=== PATIENT | male | born 1990 | race Hispanic/Latino ===

== ENCOUNTER 2022-08-17 03:42 | Inpatient (IN) | payer OTHER ==
[~2022-08-17] VITALS: Ht 167.6 cm; Wt 95.2 kg
[~2022-08-17 03:42] MED LIST: ACET-2079 PO; IBUP-2077 PO; TAMS-1 PO
[2022-08-17 04:14] LABS: BASOPHILS % (AUTO) 0.5 % (0.0-5.0); EOSINOPHILS % (AUTO) 2.2 % (0.0-8.0); HEMATOCRIT 44.2 % (42-54); LYMPHOCYTES % (AUTO) 25.9 % (21.0-51.0); MEAN CORPUSCULAR HEMOGLOBIN 29.3 pg (27.0-33.0); MEAN CORPUSCULAR HGB CONC 33.3 g/dL (32.0-36.0); MONOCYTES % (AUTO) 5.4 % (3.0-13.0); NEUTROPHILS % (AUTO) 65.6 % (40.0-77.0); PLATELET COUNT (AUTO) 251 K/uL (130-400); RED BLOOD CELL COUNT(AUTO) 5.02 MIL/uL (4.50-6.20); RED CELL DISTRIBUTION WIDTH 12.4 % (11.0-15.5); WHITE BLOOD COUNT (AUTO) 8.5 K/uL (4.8-10.8)
[2022-08-17] MEDS ORDERED: ONDANSETRON 4MG INJ ONE ×2 (04:27→05:02)
[2022-08-17 04:29] LABS: CREATININE 0.9 mg/dL (0.5-1.5); POTASSIUM 3.8 mmol/L (3.5-5.1)
[2022-08-17 04:37] LABS: ALBUMIN 4.1 g/dL (3.5-5.0); TOTAL PROTEIN, SERUM 7.6 g/dL (6.0-8.3)
[2022-08-17 04:38] LABS: APPEARANCE,URINE TURBID (CLEAR); BILIRUBIN,URINE NEGATIVE (NEGATIVE); COLOR,URINE DARK-BROWN (YELLOW); GLUCOSE, URINE (UA) NEGATIVE (NEGATIVE); KETONES,URINE NEGATIVE (NEGATIVE); LEUKOCYTE ESTERASE ,URINE 25 Leu/uL (NEGATIVE); NITRATE,URINE NEGATIVE (NEGATIVE); OCCULT BLOOD,URINE LARGE (NEGATIVE); PROTEIN,URINE 100 mg/dL (NEGATIVE); UROBILINOGEN,URINE 0.2 mg/dL (0.2-1.0)
[2022-08-17 04:42] LABS: RBC,URINE TNTC /HPF (0-1); YEAST,URINE BUDDING RARE /HPF (None Seen)
[2022-08-17] MEDS ORDERED: ONDANSETRON 4MG INJ IVP ONE (05:00)
[2022-08-17] MEDS ORDERED: MORPHINE 4 MG SYG IVP ONE (05:00)
[2022-08-17] MEDS ORDERED: KETOROLAC 30MG VIAL (30MG/ML) IVP ONE (05:00)
[2022-08-17] MEDS ORDERED: KETOROLAC 30MG VIAL (30MG/ML) ONE (05:01)
[2022-08-17] MEDS ORDERED: MORPHINE 4 MG SYG ONE (05:02)
[2022-08-17] MEDS ORDERED: 0.9%NACL 1000ML 1,000 ML IV SCH (05:30)
[2022-08-17] MEDS ORDERED: CEFTRIAXONE 1G VIAL 1 GM in 0.9%NACL 50ML 50 ML IV SCH (07:00)
[2022-08-17] MEDS ORDERED: TAMSULOSIN HCL 0.4 MG CAP.ER.24H PO ONE (07:00)
[2022-08-17] MEDS ORDERED: ONDANSETRON 4MG INJ IV PRN (07:00)
[2022-08-17] MEDS ORDERED: ACETAMINOPHEN 325 MG TAB PO PRN ×2 (07:00)
[2022-08-17] MEDS ORDERED: MORPHINE 2 MG SYG IVP PRN (08:00)
[2022-08-17] MEDS ORDERED: MORPHINE 4 MG SYG IM PRN (08:00)
[2022-08-17 08:47] LABS: HEMOGLOBIN A1C 5.4 % (4.0-6.0)
[2022-08-17] MEDS ORDERED: TAMSULOSIN HCL 0.4 MG CAP.ER.24H ONE (08:53)
[2022-08-17] MEDS ORDERED: CEFTRIAXONE 1G VIAL ONE (08:53)
[2022-08-17] MEDS: FAMOTIDINE 20MG TAB PO SCH ×2 (08:57→19:17)
[2022-08-17] MEDS: ACETAMINOPHEN WITH CODEINE 1 TAB TAB PO PRN (08:57)
[2022-08-17] MEDS: TAMSULOSIN HCL 0.4 MG CAP.ER.24H PO SCH (08:57)
[2022-08-17] MEDS: 0.9%NACL 1000ML 1,000 ML IV SCH ×3 (08:57→19:18)
[2022-08-17] MEDS: CEFTRIAXONE 1G VIAL IVPB SCH (09:05)
[2022-08-17] MEDS ORDERED: MORPHINE 4 MG SYG IV PRN (12:00)
[2022-08-17 17:20] VITALS: BP 125/81
[2022-08-17 19:54] VITALS: BP 119/83
[2022-08-17 23:51] VITALS: BP 132/90
[2022-08-18] VITALS (14 sets, daily range): BP systolic 110–132; BP diastolic 58–85
[2022-08-18 05:50] LABS: BASOPHILS % (AUTO) 0.6 % (0.0-5.0); EOSINOPHILS % (AUTO) 4.1 % (0.0-8.0); HEMATOCRIT 38.2 % (42-54); LYMPHOCYTES % (AUTO) 35.9 % (21.0-51.0); MEAN CORPUSCULAR HEMOGLOBIN 29.6 pg (27.0-33.0); MEAN CORPUSCULAR HGB CONC 33.2 g/dL (32.0-36.0); MONOCYTES % (AUTO) 6.3 % (3.0-13.0); NEUTROPHILS % (AUTO) 52.6 % (40.0-77.0); PLATELET COUNT (AUTO) 221 K/uL (130-400); RED BLOOD CELL COUNT(AUTO) 4.29 MIL/uL (4.50-6.20); RED CELL DISTRIBUTION WIDTH 12.3 % (11.0-15.5); WHITE BLOOD COUNT (AUTO) 6.7 K/uL (4.8-10.8)
[2022-08-18 06:02] LABS: INR 0.94 (0.85-1.15); PROTHROMBIN TIME 10.3 SEC (9.6-11.6)
[2022-08-18 06:04] LABS: PARTIAL THROMBOPLASTIN TIME 27.9 SEC (26.3-35.5)
[2022-08-18 06:36] LABS: ALBUMIN 3.1 g/dL (3.5-5.0); CREATININE 0.8 mg/dL (0.5-1.5); POTASSIUM 3.5 mmol/L (3.5-5.1); TOTAL PROTEIN, SERUM 6.1 g/dL (6.0-8.3)
[2022-08-18] MEDS ORDERED: POTASSIUM CHLORIDE 20MEQ/100ML 100 ML IV PRN (08:00)
[2022-08-18] MEDS ORDERED: POTASSIUM CHLORIDE 10% ELIXIR 20 MEQ/15 ML UDCUP PO PRN (08:00)
[2022-08-18] MEDS ORDERED: KCL 20 MEQ ERTAB PO ONE (08:18)
[2022-08-18] MEDS ORDERED: TAMSULOSIN HCL 0.4 MG CAP.ER.24H ONE (08:19)
[2022-08-18] MEDS: 0.9%NACL 1000ML 1,000 ML IV SCH ×2 (08:36→16:48)
[2022-08-18] MEDS: KCL 20 MEQ ERTAB PO PRN ×2 (08:37→12:22)
[2022-08-18] MEDS: TAMSULOSIN HCL 0.4 MG CAP.ER.24H PO SCH (08:38)
[2022-08-18] MEDS: FAMOTIDINE 20MG TAB PO SCH ×2 (08:38→20:41)
[2022-08-18] MEDS: CEFTRIAXONE 1G VIAL IVPB SCH (08:39)
[2022-08-18] MEDS ORDERED: CEPH500B PO (12:00)
[2022-08-18] MEDS ORDERED: IODIXANOL 320 MG/ML 100 ML VIAL ONE (15:10)
[2022-08-18] MEDS ORDERED: LIDOCAINE HCL 1% MDV 50ML VIAL ONE (15:10)
[2022-08-18] MEDS ORDERED: FENTANYL CITRATE PF 50 MCG/1 ML 2ML VIAL ONE (15:34)
[2022-08-18] MEDS ORDERED: MIDAZOLAM HCL 1 MG/ML 2ML VIAL ONE (15:34)
[2022-08-18] MEDS ORDERED: LIDOCAINE HCL 1% 20 ML VIAL ONE (15:35)
[2022-08-18] MEDS ORDERED: IOHEXOL-350 50ML VIAL IV ONE (15:35)
[2022-08-18] MEDS: ACETAMINOPHEN WITH CODEINE 1 TAB TAB PO PRN (20:41)
== END 2022-08-18 23:00 | disposition home or self-care (01) | DRG 690 ==
LOC: EDH 03:42 → EDHIP 03:43 → 3DH 17:20
PROVIDERS: ADMIT Hospitalist; ATTEND Hospitalist
PROC: 0T9130Z Drainage of Left Kidney with Drainage Device, Percutaneous Approach (ICD-10-PCS; principal; 2022-08-18)
DX: N13.6 Pyonephrosis (principal); E11.9 Type 2 diabetes mellitus without complications; Z20.822 Contact with and (suspected) exposure to COVID-19; Z79.899 Other long term (current) drug therapy; Z83.3 Family history of diabetes mellitus; Z87.442 Personal history of urinary calculi
CPT/HCPCS: 10030; 36415; 50432; 80053; 81001; 83036; 85014; 85018; 85025; 85610; 85730; 87635; 99156; C1729; C1894; G0378; J0696; J1644; J1885; J2250; J2270; J2405; J3010; J3490; J7030; Q9967

== ENCOUNTER 2024-05-02 01:22 | Emergency (ER) | payer SELFPAY ==
[~2024-05-02] VITALS: Ht 165.1 cm; Wt 97.1 kg
[~2024-05-02 01:22] MED LIST changes: +CEPH500B PO
[2024-05-02 01:47] LABS: RAPID GROUP A STREP negative (NEGATIVE)
[2024-05-02 01:54] LABS: SARS-CoV-2, RNA, NAAT NEGATIVE SARS CoV-2 (NEGATIVE)
[2024-05-02 01:58] LABS: INFLUENZA TYPE A Negative For Type A (NEGATIVE); INFLUENZA TYPE B Negative For Type B (NEGATIVE)
[2024-05-02 03:52] VITALS: PULSE 107; RESP 17
[2024-05-02] MEDS: ALBUTEROL 0.083% 2.5 MG/3 ML INH IH ONE (03:52)
[2024-05-02] MEDS ORDERED: AZIT250T9 PO (04:00)
--- NOTE | 2024-05-02 04:00 | ERN ---
General Chief Complaint: Cough Stated Complaint: C/O COUGH, CONGESTION,SOB,ITCHING TO THROAT X 2 WK Time Seen by MD: 01:47 Time Seen by Midlevel: 01:47 Source: patient History of Present Illness Allergies: Coded Allergies: No Known Allergies (Unverified Allergy, Unknown, 08/15/22) Home Meds Active Scripts Azithromycin (Azithromycin) 250 Mg Tablet, 1 TAB PO AD for 5 Days, #6 TAB 0 Refills 2 the first day followed by 1 for days 2-5 Prov:VINAY MCLAUGHLIN 05/02/24 Cephalexin Monohydrate (Keflex) 500 Mg Cap, 500 MG PO BID, #6 CAP 0 Refills Prov:LALO LUNDY 08/18/22 Tamsulosin HCl (Flomax) 0.4 Mg Cap.er.24h, 0.4 MG PO DAILY, #7 CAPSULE.DR 0 Refills Prov:EDIN MONTEIRO MD 08/15/22 Ibuprofen (Ibuprofen 800 mg Tab) 800 Mg Tab, 800 MG PO Q6H PRN for PAIN, #40 TAB 1 Refill Prov:EDIN MONTEIRO MD 08/15/22 Acetaminophen with Codeine (Acetaminophen-Cod #3 Tablet) 1 Each Tablet, 1-2 TAB PO Q4H PRN for PAIN, #15 TAB 0 Refills Prov:EDIN MONTEIRO MD 08/15/22 Past Medical History Past Medical History: No Pertinent History Medical History Other: HX OF KIDNEY STONES Past Surgical History: Other Family History Family History: Negative Social History Social History: Negative, Lives with family Results Laboratory and Microbiology Lab and Micro Result Laboratory Tests Test 05/02/24 01:33 05/02/24 04:54 Influenza Type A Antigen Negative For Type A Influenza Type B Antigen Negative For Type B SARS-CoV-2, RNA, NAAT NEGATIVE SARS CoV-2 Group A Streptococcus Rapid negative (NEGATIVE) White Blood Count 6.6 K/uL (4.8-10.8) Red Blood Count 3.95 MIL/uL (4.50-6.20) L Hemoglobin 13.2 g/dL (14.0-18.0) L Hematocrit 38.9 % (42-54) L Mean Corpuscular Volume 98.5 fL (79-99) Mean Corpuscular Hemoglobin 33.4 pg (27.0-33.0) H Mean Corpuscular Hemoglobin Concent 33.9 g/dL (32.0-36.0) Red Cell Distribution Width 15.9 % (11.0-15.5) H Platelet Count 130 K/uL (130-400) Mean Platelet Volume 9.2 fL (7.5-10.5) Immature Granulocyte % (Auto) 1.4 % (0-1) H Neutrophils (%) (Auto) 4.4 % (40.0-77.0) L Lymphocytes (%) (Auto) 44.4 % (21.0-51.0) Monocytes (%) (Auto) 48.2 % (3.0-13.0) H Eosinophils (%) (Auto) 1.4 % (0.0-8.0) Basophils (%) (Auto) 0.2 % (0.0-5.0) Neutrophils # (Auto) 0.3 K/uL (1.8-7.7) L Lymphocytes # (Auto) 2.9 K/uL (1.0-4.8) Monocytes # (Auto) 3.2 K/uL (0.1-1.0) H Eosinophils # (Auto) 0.09 K/uL (0.00-0.70) Basophils # (Auto) 0.01 K/uL (0.00-0.20) Absolute Immature Granulocyte (auto 0.09 K/uL (0-1) Nucleated Red Blood Cells 0.0 % (0.0-0.19) Sodium Level 137 mmol/L (136-145) Potassium Level 3.9 mmol/L (3.5-5.1) Chloride Level 102 mmol/L (101-111) Carbon Dioxide Level 29 mmol/L (21-32) Blood Urea Nitrogen 20 mg/dL (7-18) H Creatinine 1.0 mg/dL (0.5-1.3) Glomerular Filtration Rate Calc 101 mL/min (>90) Random Glucose 114 mg/dL (70-105) H Total Calcium 9.6 mg/dL (8.5-10.1) Troponin I High Sensitivity < 4 ng/L (4-75) L MDM MDM: Differential diagnosis: Bronchitis, COPD exacerbation, vaping related pneumonitis Rationale: Tests considered and ordered secondary to shared decision making include: Previous outside records reviewed: Old ER visits. Risk of complication and/or morbidity or mortality of patient management: None Medications-Per medication reconciliation Need for hospitalization: Patient does not meet criteria for hospitalization. Need for emergency major/minor surgery: No There are no social concerns with this patient. Prescription drug management Prescriptions will include symptomatic care Patient's prior external medical records from other ER visits were reviewed by me as indicated. Prior testing and results from previous visits were reviewed. Prior tests were taken into account with medical decision making and resource utilization, independent historian/historians were used to obtain complete medical history. I independently interpreted the test that were performed, results were reviewed by me and considered findings on radiology if ordered. Medical management and examination interpretation discussions were had by me with other qualified healthcare professionals as indicated for the patient's c are. ED Course Orders Procedure Category Date Status Time Covid Rna Naat LAB 05/02/24 Complete 01:28 Influenza Type A & B, LAB 05/02/24 Complete Rapid 01:28 Rapid (Group A Strep) LAB 05/02/24 Complete 01:28 Chest 1vw RAD 05/02/24 Taken 02:01 Albuterol 0.083% PHA 05/02/24 Complete 2.5mg/3ml (Proventil 03:00 Troponin I High LAB 05/02/24 Complete Sensitivity 04:02 12 Lead Ekg Tracing- EKG 05/02/24 Logged Technical 04:02 Ketorolac PHA 05/02/24 Complete Tromethamine 15mg/Ml 04:30 Cbc With Differential LAB 05/02/24 In Process 04:02 Basic Metabolic Panel LAB 05/02/24 Complete 04:02 Furosemide 20 Mg PHA 05/02/24 Complete Tablet (Lasix 20mg 04:30 Manual Differential LAB 05/02/24 In Process 04:54 Current Medications Medications (Trade) Dose Ordered Sig/Rosalie Route PRN Reason Start Time Stop Time Status Last Admin Dose Admin Albuterol Sulfate (Proventil 0.083% 2.5mg/3ml) 2.5 mg ONCE ONCE IH 05/02/24 03:00 05/02/24 03:02 DC 05/02/24 03:52 Furosemide (LASix 20MG TAB) 20 mg ONCE ONCE PO 05/02/24 04:30 05/02/24 04:31 DC 05/02/24 04:54 Ketorolac Tromethamine (toRADol) 15 mg ONCE ONCE IM 05/02/24 04:30 05/02/24 04:31 DC 05/02/24 04:54 Vital Signs Date Time Temp Pulse Resp B/P (MAP) Pulse Ox O2 Delivery O2 Flow Rate FiO2 05/02/24 04:58 106 20 106/66 95 Room Air* 0 21 05/02/24 03:52 107 17 05/02/24 02:40 98.6 61 20 120/74 100 Room Air* 0 05/02/24 01:24 99.7 101 20 106/61 97 Room Air I independently evaluated the patient and went over the lab results and his symptoms he admits to vaping nicotine products daily. 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 The current symptoms have been going on for 2 weeks with some chest tightness cough and congestion. No hemoptysis no objective fevers Labs were unremarkable chest x-ray shows mild prominent markings which could suggest bronchitis or perhaps pulmonary vascular congestion. He admits to chest tightness more pleuritic type. No palpitations 12 lead EKGs normal. Troponins are negative I updated the patient on all the available information and my thoughts that this may all be related to lower respiratory tract infection or perhaps pneumonitis related to vaping I discussed the trial of steroid and he is agreeable HEART Score Response (Comments) Value History: Low suspicion (0) 0 EKG: Normal 0 Age: < 45yrs (0) 0 Risk Factors: No known risk factors (0) 0 Initial Troponin: Normal limit (0) 0 HEART Score Risk: Low Risk for MACE (1-3) Total 0 DX & DISP Disposition: Discharge Departure Impression: Primary Impression: URI (upper respiratory infection) Additional Impressions: Bronchitis, Vaping nicotine dependence, tobacco product Condition: Stable Scripts Prednisone (Prednisone) 20 Mg Tablet 1 TAB PO AD for 6 Days, #14 TAB 0 Refills TAKE 1 TAB BY MOUTH THREE TIMES PER DAY X3 DAYS, THEN TAKE 1 TAB BY MOUTH TWICE A DAY X2 DAYS, THEN TAKE 1 TAB BY MOUTH ONCE A DAY X1 DAY. Prov: DONNA DICKENS MD 05/02/24 Azithromycin (Azithromycin) 250 Mg Tablet 1 TAB PO AD for 5 Days, #6 TAB 0 Refills 2 the first day followed by 1 for days 2-5 Prov: VINAY MCLAUGHLIN 05/02/24 Additional Instructions: Discharge home. Rest. Follow up with primary care Paul in 24 hours. Return to the ER for any acute changes or worsening symptoms. If any medications were prescribed take as directed. Okay to continue home medications unless otherwise discussed during your visit in the emergency room today. Patient was also advised to follow-up with primary care physician in 1 to 2 days for continued monitoring. Referrals: LACHO MILES DO (PCP) I performed the substantive portion of the visit. I have reviewed and personally made and approve the management plan that is documented in the notes by myself or the RONAN. I acknowledge full responsibility for the patient's management plan. VINAY MCLAUGHLIN May 02, 2024 04:00 DONNA DICKENS MD May 02, 2024 06:02
[2024-05-02] MEDS: furoSEMIDE 20 MG TABLET PO ONE (04:54)
[2024-05-02] MEDS: ketOROlac 15MG/ML VIAL (15MG/ML) IM ONE (04:54)
[2024-05-02 05:02] LABS: BASOPHILS # (AUTO) 0.01 K/uL (0.00-0.20); BASOPHILS % (AUTO) 0.2 % (0.0-5.0); EOSINOPHILS # (AUTO) 0.09 K/uL (0.00-0.70); EOSINOPHILS % (AUTO) 1.4 % (0.0-8.0); HEMATOCRIT 38.9 % (42-54); IMMATURE GRANULOCYTE ABSOLUTE 0.09 K/uL (0-1); LYMPHOCYTES # (AUTO) 2.9 K/uL (1.0-4.8); LYMPHOCYTES % (AUTO) 44.4 % (21.0-51.0); MEAN CORPUSCULAR HEMOGLOBIN 33.4 pg (27.0-33.0); MEAN CORPUSCULAR HGB CONC 33.9 g/dL (32.0-36.0); MEAN CORPUSCULAR VOLUME 98.5 fL (79-99); MONOCYTES # (AUTO) 3.2 K/uL (0.1-1.0); MONOCYTES % (AUTO) 48.2 % (3.0-13.0); NEUTROPHILS # (AUTO) 0.3 K/uL (1.8-7.7); NEUTROPHILS % (AUTO) 4.4 % (40.0-77.0); PLATELET COUNT (AUTO) 130 K/uL (130-400); RED BLOOD CELL COUNT(AUTO) 3.95 MIL/uL (4.50-6.20); RED CELL DISTRIBUTION WIDTH 15.9 % (11.0-15.5); WHITE BLOOD COUNT (AUTO) 6.6 K/uL (4.8-10.8)
[2024-05-02 05:09] LABS: POTASSIUM 3.9 mmol/L (3.5-5.1)
[2024-05-02] MEDS ORDERED: PRED20TA3 PO (05:58)
[2024-05-02 06:04] LABS: EOSINOPHILS % (MANUAL) 1 % (1-6); LYMPHOCYTES % (MANUAL) 70 % (22-44); MAN.DIFF COMMENT-IMPRESSION MANUAL DIFFERENTIAL; MONOCYTES % (MANUAL) 7 % (2-9); OTHER CELLS,MANUAL % 5 (0-0); REACTIVE LYMPHOCYTES 12 % (0-0); SEGMENTED NEUTROPHILS % 5 % (40-70); TOTAL CELLS COUNTED 100
[2024-05-02 06:05] LABS: PLATELET MORPHOLOGY COMMENT ADEQUATE
[2024-05-02 06:24] VITALS: BP 102/64; PULSE 98; RESP 20; TEMP 98.6; O2SAT 97
[2024-05-02] MEDS: Solu-medROL 40MG VIAL IVP ONE (06:34)
--- NOTE | 2024-05-02 07:30 | EKG ---
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
--- NOTE | 2024-05-02 09:59 | HMCIMG ---
PORTABLE CHEST RADIOGRAPH INDICATION: Cough COMPARISON: None FINDINGS: Heart size is normal. The pulmonary vascularity and romain appear normal. No abnormal pulmonary parenchymal opacity or consolidation identified. No significant pleural effusion noted. No pneumothorax detected. IMPRESSION: No radiographic evidence for any acute cardiopulmonary process.
== END 2024-05-02 06:46 | disposition home or self-care (01) ==
LOC: EDH 01:22
DX: J06.9 Acute upper respiratory infection, unspecified (principal); J40 Bronchitis, not specified as acute or chronic; F17.290 Nicotine dependence, other tobacco product, uncomplicated; Z20.822 Contact with and (suspected) exposure to COVID-19; Z79.899 Other long term (current) drug therapy
CPT/HCPCS: 99285; 84484; 80048; 85025; 87880; 87804 ×2; 88184; 88185; 88189; 85060; 36415; 87635; 71045; 96372; 96374; 93005; 94640; J2919; J1885